=== PATIENT | female | born 1990 | race Caucasian/White ===

== ENCOUNTER → 2024-02-20 10:25 | Outpatient (BNVA) | payer BC, SELFPAY | PROVIDERS: Visit Provider Physician Assistant | DX: G56.03 Carpal tunnel syndrome, bilateral upper limbs (principal); G56.23 Lesion of ulnar nerve, bilateral upper limbs | CPT/HCPCS: 73110 ==

== ENCOUNTER 2024-04-11 06:27 | Day surgery (SDC) | payer BC, SELFPAY ==
[2024-04-11] VITALS (7 sets, daily range): BP systolic 109–142; BP diastolic 52–88; PULSE 85–106; RESP 16–18; TEMP 36.1–36.4; O2SAT 98–100
--- NOTE | 2024-04-11 06:37 | P.ANESASSM_ITS ---
Pre-Anesthetic Assessment Height/Weight: Height 5 ft 5 in Preop Diagnosis: Carpal tunnel syndrome Operation Date: 04/11/24 08:00 Proposed Procedures p Carpal Tunnel Release Carpal Tunnel Release With tenosynovial biposy(Bilateral) - Colton Nj, DO Was Beta Bebeto taken within 24 hours: N/A Was Clonidine taken within 24 hours: N/A Social No alcohol and No tobacco Exam alert, oriented x 3, clear to auscultation bilaterally and regular rate & rhythm Airway Submandibular: within normal limits Cervical ROM: within normal limits Mallampati: Class III Dentition: full Anesthetic Plan ASA status: 2 Anesthesia: MAC Other: Patient states she got nauseous with prior dental procedure. Believes they gave her propofol NPO since yesterday evening History of hypothyroidism on Synthroid Patient has been taking semaglutide for weight loss. Last taken 03/31/2024 Denies any cardiac or pulmonary issues METs greater than 4 Plan for MAC anesthetic with local via surgeon Medications/Allergies Home Medications ?Medication ?Instructions ?Recorded ?Confirmed ?Last Taken ?Type levothyroxine 25 mcg capsule 25 mcg PO DAILY 02/20/24 04/11/24 04/10/24 History nortriptyline 25 mg capsule 25 mg PO DAILY 02/20/2404/10/24 History semaglutide (weight loss) 0.25 0.25 mg SUBCUT Q7D 10/0604/11/24 03/31/24 History mg/0.5 mL subcutaneous pen injector (Wegovy) tramadol 50 mg tablet 50 mg PO Q6H PRN pain 5 days #20 02/20/24 04/11/24 Unknown Rx tabs Allergies Allergy/AdvReac Type Severity Reaction Status Date / Time azithromycin Allergy Severe ALGY-Anaphy Verified 04/10/24 08:52 laxis Latex, Natural Rubber Allergy Mild rash Verified 04/10/24 08:52 [facility] Anesthesia Social History Smoking and tobacco/nicotine status: never used tobacco/nicotine Second hand smoke exposure: Yes Alcohol intake: never Substance/Drug Use: never Adopted: No Caregiver/support person: Yes Lives independently: No Household members: spouse and children Housing: House Marital status: Number of children: 3 service: No Current occupational status: employed Data Anesthesia Cardiac Studies: No Data to Display
--- NOTE | 2024-04-11 06:55 | W.PM.OPSUD ---
Surgery/Procedure H&P Update DATE OF PROCEDURE: April 11, 2024 DATE H&P PERFORMED: 03/19/24 H&P UPDATE INFORMATION: I have reviewed H&P completed within last 30 days, I have examined patient prior to procedure and No changes to prior documentation PREOP DIAGNOSIS: Right carpal tunnel syndrome, left carpal tunnel syndrome PRIMARY INDICATION FOR PROCEDURE: Right carpal tunnel syndrome, left carpal tunnel syndrome PLANNED PROCEDURE: Operation Date: 04/11/24 08:00 Proposed Procedures p Carpal Tunnel Release Carpal Tunnel Release With tenosynovial biposy(Bilateral) - Colton Nj DO
[2024-04-11] MEDS: scopolamine 1 mg PATCH 1 PATCH TRANSDERMA (07:11)
[2024-04-11] MEDS: acetaminophen 1,000 MG/100 ML PIGGYBACK 400 MG IV (07:12)
[2024-04-11] MEDS: sodium chloride 0.9% 1,000 ML 30 ML IV (07:12)
[2024-04-11] MEDS: ketorolac 30 mg/mL INJ IVP (07:13)
[2024-04-11 07:21] LABS: OR HCG Qualitative Urine Negative (Negative)
[2024-04-11] MEDS: ceFAZolin 2,000 MG in sodium chloride 0.9% (plus) 50 ML 100 MG IV (08:02)
[2024-04-11] MEDS: ROPivacaine 0.5% SDV 30 mL 150 MG INJECTION (08:46)
[2024-04-11] MEDS: lidocaine-epi 1% 20 mL INJ INJECTION (08:47)
--- NOTE | 2024-04-11 08:55 | P.BOP_ITS ---
Date of Procedure: 04/11/2024 Surgeon: Colton Nj DO Induction Brazer(s): None Procedure(s) performed: Left carpal tunnel release Left carpal tunnel tenosynovial biopsy Right carpal tunnel release Right carpal tunnel tenosynovial biopsy Findings of the procedure(s): Patient was found to bilateral carpal tunnel syndrome underwent procedure as planned without issues or complications taken back to PACU in stable condition we did obtain tenosynovial biopsies of both carpal tunnels and will send for specimen as well as [place] red/amyloidosis staining. Follow-up in 2 weeks. Patient understands agrees current plan. Questions answered. Estimated blood loss: 10 mL Specimen(s) removed: Tenosynovial biopsies of both the left and right carpal tunnels were performed Post-operative diagnosis: Bilateral carpal tunnel syndrome
--- NOTE | 2024-04-11 08:56 | P.OP_ITS ---
Operative Report Date of procedure: April 11, 2024 Surgeon: Colton Nj DO Procedure: Preop Diagnosis: Right Carpal Tunnel Syndrome Left carpal tunnel syndrome Post-op diagnosis: Same Procedure done: Left carpal tunnel release Left carpal tunnel tenosynovial biopsy Right carpal tunnel release Right carpal tunnel tenosynovial biopsy Surgeon: Colton Nj DO Anesthesia: MAC (Local) Estimated blood loss: [10]mL Tourniquet time 5 minutes- left 5 minutes?right IV fluids: See anesthesia record Complications: None Findings: See operative report narrative Condition: stable Disposition: same day Brief History: Patient is a pleasant [33]year-old [female] with bilateral carpal tunnel syndrome. Patient has been worked up in the outpatient setting findings and physical examination consistent with this. Patient nerve conduction studies consistent with carpal tunnel syndrome. We detailed out patient's risk benefits complication alternatives with surgical and nonsurgical treatment options. Through shared decision making, patient agrees to proceed with surgical intervention of the bilateral carpal tunnel release with tenosynovial biopsy. Patient understands and agrees with current plan. All questions answered. Patient elects to proceed with surgical intervention. Procedure: Patient seen and evaluated in the preoperative holding area. Consent was reviewed and signed with patient. Correct extremities was marked. Patient was seen evaluated by the anesthesia department once cleared for surgery was brought back to the operative suite. Patient was kept on [facility] in supine position all bony prominences were well-padded patient properly secured to the bed. Bilateral upper extremity was then placed onto an armboard. A nonsterile tourniquet was applied to the bilateral upper arm. Patient underwent anesthesia per the anesthesia department. Patient's bilateral upper extremity was then prepped and draped in standard orthopedic fashion. Final timeout performed. Patient received appropriate preoperative antibiotics. Under sterile aseptic technique patient received local anesthesia over the preplanned carpal tunnel incision sites. Esmarch was used to exsanguinate the Left upper extremity and tourniquet was insufflated to 250 mmHg. A standard mini open Left carpal tunnel incision was made. Starting distally at Retana's cardinal line in line with the fourth ray extending proximally distal to the wrist crease centered over the carpal tunnel. Sharp scalpel incision was made through skin and subcutaneous tissue. Self-retaining retractor was placed and the palmar fascia was identified. This was then split longitudinally and direct visualization of the transverse carpal ligament was then made. I then utilizing scalpel feathered through the transverse carpal ligament until I entered the floor of the transverse carpal tunnel ligament into the carpal tunnel. Next I switched to dissection scissors and completed my release of the transverse carpal ligament distally with care to protect the recurrent motor branch. I completely released into the palmar fat and until no entrapment was noted distally. Care was made to protect the superficial palmar arch during my distal dissection. Next I utilized a nasal speculum placed on top of the transverse carpal ligament and utilize this to retract the subcutaneous fat and tissue and under direct loupe magnification was able to identify the transverse carpal ligament. Next I then protected the contents of the carpal tunnel and subsequently utilizing dissection scissors under loupe magnification completely released the transverse carpal ligament proximally into the antebrachial fascia. Care was made to protect the palmar cutaneous branch by keeping my scissors curved ulnarly. Once completely released, I then placed my [place] and had appropriate decompression of the carpal tunnel proximally as well as distally. I then inspected the contents of the carpal tunnel which showed an hourglass shape of the median nerve showing its compression. No masses were noted. Tendons appeared healthy. At this part of procedure I then subsequently performed a tenosynovial biopsy of the left carpal tunnel syndrome. I subsequently excised and leaflet of the transverse carpal ligament for specimen as well as then mobilized the flexor tendons and excised patient's tenosynovium and performed a tenosynovectomy of one of the flexor tendons and sent this for specimen as well this was sent for [place] red/amyloidosis staining just to rule out amyloidosis. This completed my work on the left carpal tunnel syndrome. Wound was then thoroughly irrigated. Tourniquet deflated. Hemostasis satisfactory with bipolar electrocautery. I then closed the incision with interrupted nylon stitches. Xeroform 4 x 4's and a bulky soft dressing was applied. Esmarch was used to exsanguinate the Right upper extremity and tourniquet was insufflated to 250 mmHg. A standard mini open Right carpal tunnel incision was made. Starting distally at Retana's cardinal line in line with the fourth ray extending proximally distal to the wrist crease centered over the carpal tunnel. Sharp scalpel incision was made through skin and subcutaneous tissue. Self-retaining retractor was placed and the palmar fascia was identified. This was then split longitudinally and direct visualization of the transverse carpal ligament was then made. I then utilizing scalpel feathered through the transverse carpal ligament until I entered the floor of the transverse carpal tunnel ligament into the carpal tunnel. Next I switched to dissection scissors and completed my release of the transverse carpal ligament distally with care to protect the recurrent motor branch. I completely released into the palmar fat and until no entrapment was noted distally. Care was made to protect the superficial palmar arch during my distal dissection. Next I utilized a nasal speculum placed on top of the transverse carpal ligament and utilize this to retract the subcutaneous fat and tissue and under direct loupe magnification was able to identify the transverse carpal ligament. Next I then protected the contents of the carpal tunnel and subsequently utilizing dissection scissors under loupe magnification completely released the transverse carpal ligament proximally into the antebrachial fascia. Care was made to protect the palmar cutaneous branch by keeping my scissors curved ulnarly. Once completely released, I then placed my [place] and had appropriate decompression of the carpal tunnel proximally as well as distally. I then inspected the contents of the carpal tunnel which showed an hourglass shape of the median nerve showing its compression. No masses were noted. Tendons appeared healthy. At this part of procedure I then subsequently performed a tenosynovial biopsy of the right carpal tunnel syndrome. I subsequently excised and leaflet of the transverse carpal ligament for specimen as well as then mobilized the flexor tendons and excised patient's tenosynovium and performed a tenosynovectomy of one of the flexor tendons and sent this for specimen as well this was sent for [place] red/amyloidosis staining just to rule out amyloidosis. This completed my work on the right carpal tunnel syndrome. Wound was then thoroughly irrigated. Tourniquet deflated. Hemostasis satisfactory with bipolar electrocautery. I then closed the incision with interrupted nylon stitches. Xeroform 4 x 4's and a bulky soft dressing was applied. Patient was then awakened from anesthesia and taken to PACU in stable condition. Patient tolerated procedure without complications. Disposition: Patient taken to PACU in stable condition recovering well. Dressing clean dry and intact. Patient will receive appropriate discharge instructions as well as pain medication postoperatively. Patient to follow-up with me in the office in 2 weeks. They understand they may be weightbearing as tolerated to the right hand. Patient should keep incision clean dry and intact. Patient understands if any questions or concerns may contact the office. Will follow-up in the office on patient's biopsy.
--- NOTE | 2024-04-11 10:00 | ANE.PACU2 ---
Inpatient post-anesthesia follow up: Airway intact: Yes Vital signs: Temperature 97 F Pulse Rate 85 Respiratory Rate 16 Blood Pressure 135/88 Pulse Oximetry 99 Oxygen Delivery Me thod Room Air Oxygen Flow Rate Fraction of Inspir ed Oxygen Hydration adequate: Yes Nausea and vomiting: No Pain level: 1 Mental status: Baseline
== END 2024-04-11 10:00 | disposition home or self-care (01) ==
PROVIDERS: Anesthesiology; PCP Nurse Practitioner Family; Visit Provider Student in an Organized Health Care Education/Training Program
PROC: (CPT 64721; principal; 2024-04-11 08:00)
DX: G56.03 Carpal tunnel syndrome, bilateral upper limbs (principal); E03.9 Hypothyroidism, unspecified; Z79.890 Hormone replacement therapy; Z79.85 Long-term (current) use of injectable non-insulin antidiabetic drugs; Z79.899 Other long term (current) drug therapy; Z88.1 Allergy status to other antibiotic agents
CPT/HCPCS: 64721; 25115; 81025; 88304; 88313; J0131; J0690; J1885; J2250; J2704; J2795; J3010; J7030